=== PATIENT | female | born 1970 | race African-American/Black ===

== ENCOUNTER → 2017-02-27 | Outpatient (CLI) | payer MEDICARE ==
[2016-06-23 09:08] VITALS: BP 155/88
[~2017-02-27] MED LIST: CYCL5TAB PO; HYDR-2758 PO
--- NOTE | 2017-02-27 15:07 | RAD ---
DATE: 02/27/2017 EXAM: DIGITAL SCREEN BILAT W/CAD HISTORY: Routine screening COMPARISON: 01/11/2016 This study was interpreted with the benefit of Computerized Aided Detection (CAD). The breast parenchyma is heterogeneously dense, which could reduce sensitivity of mammography. Breast parenchyma level C. FINDINGS: There is a small rounded opacity in the posterolateral aspect of left breast as seen on the cc view, not evident on previous studies. There is a suggestion of a correlate on the oblique view. No other new or enlarging breast densities are seen. No suspicious microcalcifications are evident. IMPRESSION: Possible developing nodule posterolaterally in the left breast. Diagnostic mammograms to include spot compression and straight mediolateral views are suggested. If a suspicious opacity persists, sonographic evaluation would then be indicated. BI-RADS CATEGORY: 0 INCOMPLETE: NEEDS ADDITIONAL IMAGING EVALUATION AND/OR PRIOR MAMMOGRAMS FOR COMPARISON. RECOMMENDED FOLLOW-UP: ADD ADDITIONAL IMAGING PQRS compliance statement: Patient information was entered into a reminder system with a target due date for the next mammogram. Mammography is a sensitive method for finding small breast cancers, but it does not detect them all and is not a substitute for careful clinical examination. A negative mammogram does not negate a clinically suspicious finding and should not result in delay in biopsying a clinically suspicious abnormality. "Our facility is accredited by the [employer] Mammography [employer]."
== END | disposition home or self-care (01) ==
LOC: MAMMO 13:42
PROVIDERS: ATTEND Family Medicine
DX: Z12.31 Encounter for screening mammogram for malignant neoplasm of breast (principal)
CPT/HCPCS: G0202; 77067

== ENCOUNTER → 2017-03-11 | Outpatient (CLI) | payer MEDICARE ==
[2016-06-23 09:08] VITALS: BP 155/88
--- NOTE | 2017-03-12 13:37 | RAD ---
DATE: 03/11/2017 EXAM: DIGITAL DIAGNOSTIC LT, BREAST LEFT HISTORY: Well-defined nodule suggested on screening examination COMPARISON: Screening examination 02/27/2017 This study was interpreted with the benefit of Computerized Aided Detection (CAD ). FINDINGS: Breast Density: Unchanged relative to the screening exam. There is a well-defined 9-10 mm oval mass compatible with that suggested on the screening examination. The mass is positioned at approximately the 2:00 position of the breast. Targeted ultrasound was performed. At the 2:00 position 5 cm from the nipple is a oval 1.4 cm benign-appearing mass. There is somewhat larger than that suggested on the diagnostic exam. At the 1:00 position 5 cm from the nipple is a 5 mm benign-appearing mass with occasional internal echoes which may represent debris. At the 1:30 position an additional 5 mm mass is seen and finally at the 2:00 position 7 cm from the nipple an additional 7-8 mm mass is seen. All of these masses have benign features on ultrasound. IMPRESSION: Probable benign findings on mammography and targeted ultrasound. Follow-up mammography of the left breast and targeted ultrasound is suggested in 6 months to document stability BI-RADS CATEGORY: 3 PROBABLE BENIGN FINDING(S-SHORT INTERVAL FOLLOW-UP SUGGESTED RECOMMENDED FOLLOW-UP: 6M 6 MONTH FOLLOW-UP PQRS compliance statement: Patient information was entered into a reminder system with a target due date 09/10/2017 for the next mammogram. Mammography is a sensitive method for finding small breast cancers, but it does not detect them all and is not a substitute for careful clinical examination. A negative mammogram does not negate a clinically suspicious finding and should not result in delay in biopsying a clinically suspicious abnormality. "Our facility is accredited by the [employer] Mammography [employer]." MTDD
== END | disposition home or self-care (01) ==
LOC: MAMMO 12:52
PROVIDERS: ATTEND Family Medicine
DX: R92.8 Other abnormal and inconclusive findings on diagnostic imaging of breast (principal)
CPT/HCPCS: 76641; G0206; 77065

== ENCOUNTER → 2018-03-12 | Outpatient (CLI) | payer MEDICARE | END | disposition home or self-care (01) | LOC: MAMMO 12:59 | DX: R92.8 Other abnormal and inconclusive findings on diagnostic imaging of breast (principal); I10 Essential (primary) hypertension | CPT/HCPCS: 76641; 77066; G0279 ==

== ENCOUNTER → 2018-09-03 | Outpatient (CLI) | payer MEDICARE ==
[2016-06-23 09:08] VITALS: BP 155/88
[~2018-09-03] MED LIST changes: -HYDR-2758 PO; +HYDR-2761 PO
[2018-09-03 12:16] LABS: HEMATOCRIT 40.5 % (36.0-47.0); HEMOGLOBIN 13.7 g/dL (12.0-15.5); RED CELL DISTRIBUTION WIDTH 14.4 % (11.5-14.5); WHITE BLOOD COUNT 7.5 x10^3/uL (4.0-11.0)
[2018-09-03 12:35] LABS: ALBUMIN 4.4 g/dL (3.4-5.0); ALBUMIN/GLOBULIN RATIO 0.9 (1.0-1.7); CALCIUM 10.1 mg/dL (8.5-10.1); POTASSIUM 4.1 mmol/L (3.5-5.1); TOTAL BILIRUBIN 0.3 mg/dL (0.2-1.0); TOTAL PROTEIN 9.3 g/dL (6.4-8.2)
[2018-09-03 12:36] LABS: CHOLESTEROL/HDL RATIO 4.2
[2018-09-03 20:10] LABS: HEMOGLOBIN A1C 6.2 % (4.8-5.6)
== END | disposition home or self-care (01) ==
LOC: LAB 10:58
PROVIDERS: ATTEND Family Medicine
DX: E78.5 Hyperlipidemia, unspecified (principal); R73.02 Impaired glucose tolerance (oral); I10 Essential (primary) hypertension
CPT/HCPCS: 36415; 80053; 80061; 83036; 85027